=== PATIENT | female | born 1970 | race Two or more races ===

== ENCOUNTER → 2024-04-12 | Outpatient (CLI) | payer MEDICAID, SELFPAY ==
--- NOTE | 2024-04-12 10:00 | XR_ITS ---
Examination: Screening digital mammography, bilateral Computer aided detection 3-D breast Tomosynthesis, bilateral Date and time of exam: April 12, 2024 0943 hours Compared to mammograms dating to November 03, 2019 Indication: Screening Technique: Nonmagnified MLO, CC views of the breasts to been obtained, reconstructed from 3-D Tomosynthesis images. R2 computer aided detection program utilized for evaluation of suspicious masses and/or abnormal calcifications. 3-D Tomosynthesis images obtained. Findings: Scattered areas of fibroglandular density Benign calcifications No interval suspicious masses Impression: BI-RADS category II: Benign Findings. Recommend 1 year follow-up mammogram.
== END | disposition home or self-care (01) ==
PROVIDERS: PCP Physician Assistant; Referring Provider Physician Assistant; Visit Provider Physician Assistant
DX: Z12.31 Encounter for screening mammogram for malignant neoplasm of breast (principal); R92.323 Mammographic fibroglandular density, bilateral breasts; R92.1 Mammographic calcification found on diagnostic imaging of breast
CPT/HCPCS: 77063; 77067

== ENCOUNTER 2024-07-04 13:30 | Outpatient (RCR) | payer MEDICAID, SELFPAY ==
--- NOTE | 2024-06-22 15:08 | PTNOTE_ITS ---
PT OP Initial Eval Patient Information Outpatient Physical Therapy Treatment Date: 06/22/24 Visit Reasons: Left knee pain Medical Diagnosis: M25.462 Treatment Dx #1: L knee pain Start of Care: 06/22/24 Date of Onset: 6 months ago Smoking Status Smoking Status: Never smoker Initial Assessment Subjective: Pt is 54 yr old kazakh speaking female with c/o L knee pain and numbness and she point to the distal quads above the patella as site of pain. She does all ADL's and HH chores with ssx that don't vary or change, it's constant. She denies LBP and pain referring down the LE except when she lays prone and occasionally in sitting. PMH: pre-DM, high cholesterol Imaging: with provider Pt goal: to get rid of the numbness and swelling Objective: L knee AROM: Flexion: full extension: full SLR: 45 deg Sharyn's: negative Patella compression: negative Arthur's: negative Strength: Quads: 4/5 HS: 4/5 Trunk ROM screen: negative for referred pain into the L LE Assessment: Pt presents with numbness of distal lateral quads which could be consistent with lumbar radiculopathy but no increase in numbness was provoked with trunk ROM. It's not clear what is causing the numbness since the knee special testing was negative and knee strength is good. Pt may benefit from skilled therapy to meet goals and has fair rehab potential. She may benefit from further diagnostic imaging of the area and the L/S. Short Term and Business Taxes Specialist Goals 1. Ind with HEP 2. Decreased numbness of distal quads/ITB by 50% Treatment Plan 1. Manual therapy ? 2. Therex? 3. Modalities as indicated, moist heat, ice, estim Frequency and Duration: 1x a week for 4 visits Certification Dates: 06/22/24 to 09/19/24 Procedure Charges OP PT Eval Mod Complex 30 minutes: Yes
--- NOTE | 2024-07-04 14:41 | PT.ODAYNRPT ---
PT Outpatient Daily Note OP Daily Note Outpatient Physical Therapy Treatment Date: 07/04/24 Visit Reasons: Left knee pain Subjective: Same as evaluation Objective: See F/S for therex Assessment: Interesting presentation with numbness no pain of distal lateral quads, no pain provoked with therex Plan: Continue per POC Length of Time (minutes) of Treatment: 30 Minutes Procedure Charges Therapeutic Exercise 30 minutes: Yes
== END 2024-07-08 23:59 | disposition home or self-care (01) ==
LOC: CPTX 13:30
PROVIDERS: PCP Physician Assistant; Referring Provider Physician Assistant; Visit Provider Physician Assistant
DX: M25.562 Pain in left knee (principal); R20.0 Anesthesia of skin; M25.462 Effusion, left knee
CPT/HCPCS: 97110; 97162

== ENCOUNTER 2024-08-02 11:30 | Outpatient (RCR) | payer MEDICAID, SELFPAY ==
--- NOTE | 2024-07-19 12:29 | PT.ODAYNRPT ---
PT Outpatient Daily Note OP Daily Note Outpatient Physical Therapy Treatment Date: 07/19/24 Visit Reasons: Foot pain Subjective: Same as last time Objective: See F/S for therex MT: STM distal L ItB x5' Assessment: Pt presentation consistent with ItB tendinopathy with numbness and pain with pressure of distal ITB which is a new discovery today. Previously pt had denied pain of distal ITB. Plan: Continue per POC to treat L ItB Length of Time (minutes) of Treatment: 30 Minutes Procedure Charges Therapeutic Exercise 30 minutes: Yes
--- NOTE | 2024-07-27 10:59 | PT.ODAYNRPT ---
PT Outpatient Daily Note OP Daily Note Outpatient Physical Therapy Treatment Date: 07/27/24 Visit Reasons: Foot pain Subjective: Pt c/o soreness in L ITB after last visit Objective: See F/S for therex MT: STM distal L ItB x5' Assessment: Pt presentation consistent with ItB tendinopathy with numbness and pain with pressure of distal ITB which is a new discovery last visit. Previously pt had denied pain of distal ITB. Plan: Continue per POC to treat L ItB Length of Time (minutes) of Treatment: 30 Minutes Procedure Charges Therapeutic Exercise 30 minutes: Yes
--- NOTE | 2024-08-02 13:58 | PT.ODS1RPT ---
PT OP Progress/Discharge Note Date of Service: 08/02/24 Progress Note/DC Note Progress Note/Discharge Note: DC Note Patient Information Visit Reasons: Foot pain Service Continue Service or Discharge: Discharge Discharge Date: 08/02/24 Status Subjective: Pt c/o soreness in L ITB after last visit and the knee is still numb. Objective: See F/S for therex MT: STM distal L ItB x5' L knee ArOM: full flexion and extension. Strength: Quads: 4/5 HS: 4/5 TTP: moderate of mid to distal ITB Assessment: Pt has attended 4/4 authorized therapy visits with limited progress with therapy goals. Pt presentation consistent with ItB tendinopathy with numbness and pain with pressure of distal ITB which is a new discovery last visit. Previously pt had denied pain of distal ITB. She would benefit from further diagnostic imaging of L knee such as MRI. She hasn't met goal of decreased numbness of distal quads/ITB by 50%. She is independent with HEP to meet that goal. Plan: D/C with HEP. Procedure Charges Therapeutic Exercise 30 minutes: Yes
== END 2024-08-08 23:59 | disposition home or self-care (01) ==
LOC: CPTX 11:30
PROVIDERS: PCP Physician Assistant; Referring Provider Physician Assistant; Visit Provider Physician Assistant
DX: M25.562 Pain in left knee (principal); M25.462 Effusion, left knee; R20.0 Anesthesia of skin
CPT/HCPCS: 97110

== ENCOUNTER → 2024-11-07 | Outpatient (CLI) | payer MEDICAID, SELFPAY ==
--- NOTE | 2024-11-07 15:15 | XR_ITS ---
Exam: MRI knee without contrast, left Date and time of exam: November 07, 2024 1709 hours INDICATIONS: Left knee pain and swelling instability weakness months Technique: Multiple axial, coronal, and sagittal sections on the knee have been obtained. T2-Weighted sagittal, fat-suppressed images, TR 3,500, TE 62, T2 weighted coronal fat-saturated images, TR 3,500, TE 62 Proton density sagittal sections, TR 1800, TE 31. T-1 weighted coronal images, TR 524, TE 13.0 Findings: Medial meniscus anterior horn intact. Medial meniscus, body intact. Posterior horn medial meniscus intact. Lateral meniscus anterior horn is intact Lateral meniscus, body is intact Posterior horn lateral meniscus is intact Anterior cruciate ligament is mildly attenuated Posterior cruciate ligament appears intact. Knee effusion is small. Quadriceps and patellar tendons appear intact. There is no evidence of tendinosis. Inflammatory change or fracture of Hoffa's fat pad is not seen. Medial patellar facet demonstrates mild thinning. Lateral patellar facet cartilage demonstrates mild thinning. Trochlear cartilage demonstrates mild thinning. Marrow signal adequate. Medial collateral ligament appears intact. No meniscocapsular separation is seen. Illiotibial band and fibular collateral ligament are intact. Biceps femoris tendons appear intact. Medial femoral condylar articular cartilage demonstrates mild thinning. Lateral femoral condylar articular cartilage demonstratesmild thinning. Tibial plateau cartilage demonstrates mild thinning. Impression: Mild attenuation anterior cruciate ligament
== END | disposition home or self-care (01) ==
LOC: SMRI 14:16
PROVIDERS: PCP Physician Assistant; Referring Provider Physician Assistant; Visit Provider Physician Assistant
DX: M23.8X2 Other internal derangements of left knee (principal)
CPT/HCPCS: 73721

== ENCOUNTER 2025-02-21 19:04 | Emergency (ER) | payer MEDICAID, SELFPAY ==
[2025-02-21 19:07] VITALS: BMI 32.8
[2025-02-21 20:19] VITALS: BP 138/86; PULSE 86; RESP 18; TEMP 36.9; O2SAT 98
--- NOTE | 2025-02-21 20:22 | XR_ITS ---
Examination: Duplex scan of the lower extremity, unilateral left Date and time of exam: February 21, 2025, 2027 hours INDICATIONS: Onset left-sided leg pain beginning today Technique: Duplex scan of the extremity veins using B-mode/grayscale imaging and Doppler spectral analysis and color flow Attention is directed to internal echogenicity, compression and augmentation involving these veins, color flow assessment, spectral analysis Findings: Major deep venous structures in the extremity demonstrate normal course and caliber. There is no evidence of deep vein thrombosis. Normal color flow and spectral analysis Impression: Negative for DVT..
--- NOTE | 2025-02-21 20:24 | PD.EDEXREM ---
ED Extremity Problem RME/HPI General Chief complaint: Extremity Injury, Lower Stated complaint: L foot and lower leg pain Time Seen by Provider: 02/21/25 20:23 Arrival date/time: 02/21/25 19:04 55F with history of HTN presents to ED with several days of LLE pain w/o fall/trauma. This has happened before, but this time, meds aren't helping. Limitations: no limitations Related Data Home Medications ?Medication ?Instructions ?Recorded ?Confirmed lisinopril 20 mg tablet 20 mg PO QDAY 04/11/21 04/11/21 acetaminophen 325 mg tablet 650 mg PO Q8H PRN Pain 04/16/23 04/16/23 (Tylenol) nitrofurantoin 100 mg PO Q12H 04/16/23 04/16/23 monohydrate/macrocrystals 100 mg capsule phenazopyridine 200 mg tablet 200 mg PO TID PRN Pain 04/16/23 04/16/23 Previous Rx's ?Medication ?Instructions ?Recorded ondansetron 4 mg disintegrating 4 mg PO Q8H PRN nausea and 04/16/23 tablet vomiting #10 tabs Allergies Allergy/AdvReac Type Severity Reaction Status Date / Time naproxen Allergy Unknown Verified 02/21/25 19:15 Review of Systems Review of Systems Systems Reviewed: All systems reviewed, normal except as documented Musculoskeletal Musculoskeletal: Reports as per HPI and Reports radiating pain into limb Past Medical History Past Medical History CARDIAC: Negative Congestive Heart Failure RESPIRATORY: Negative Chronic Obstructive Pulmonary Disease (COPD) GENITOURINARY: Negative Renal Disease ENDOCRINE: Negative Diabetes Mellitus Type 1 or Diabetes Mellitus Type 2 Social History SMOKING STATUS: Never smoker ED Exam General Limitations: Present no limitations General appearance: Present alert and in no apparent distress Head Head exam: Present atraumatic Neck Neck exam: Present normal inspection, full ROM and trachea midline Chest Chest inspection: Present normal inspection and symmetric chest wall rise Extremities Exam Extremities exam: Present normal inspection and full ROM Neurological Exam Neurological exam: Present alert and oriented X3 Psychiatric Psychiatric exam: Present normal affect and normal mood Skin Skin exam: Present warm, dry, intact and normal color Course Quality Measures none Orders Category Date Time Status US venous doppler LE LT Stat Exams 02/21/25 20:22 Completed Baclofen [Lioresal] Med 02/21/25 20:22 Discontinued 10 mg PO X1 ONE HYDROcodone*/APAP 5/325 [[place] 5/325] Med 02/21/25 20:22 Discontinued 1 tab PO X1 ONE Vital Signs Vital signs: Vital Signs Temperature 98.4 F 02/21/25 20:19 Pulse Rate 86 02/21/25 20:19 Respiratory Rate 18 02/21/25 20:19 Blood Pressure 138/86 H 02/21/25 20:19 Pulse Oximetry (%) 98 02/21/25 20:19 Oxygen Delivery Method Room Air 02/21/25 20:19 O2 at 98% on RA and WNLs Extremity Problem MDM Narrative MDM Narrative:: 55F with history of HTN presents to ED with several days of LLE pain w/o fall/trauma. This has happened before, but this time, meds aren't helping. Physical exam reveals unremarkable LLE exam including no swelling or redness. Skin is warm. Patient is afebrile, alert, but appears uncomfortable. US no DVT. Meds and student financial services counselor given. Patient data External records reviewed:: [facility] previous records Clinical information provided by:: patient Social determinants that could affect healthcare access:: none Patient has the following chronic illnesses:: HTN How is presenting disease/condition affected by chronic disease/condition?: uneffected by Evaluation data The following diagnostics were reviewed and interpreted by me:: radiology exam(s) Lab and/or radiology exams considered but not ordered:: ordered Interpretation Summary: above Medications / Prescriptions Medications or Prescriptions considered but not ordered:: ordered Medication administrations:: Medication Administration History Discontinued Medications Hydrocodone Bitart/Acetaminophen (Hydrocodone/Apap 5/325 Tablet) 1 tab PO X1 ONE Stop: 02/21/25 20:23 Last Admin: 02/21/25 21:14 Dose: 1 tab Documented By: MICHAEL Baclofen (Baclofen 10 Mg Tablet) 10 mg PO X1 ONE Stop: 02/21/25 20:23 Last Admin: 02/21/25 21:13 Dose: 10 mg Documented By: MICHAEL above Consultations Consultation(s) initiated? (list below): No Diagnosis Extremity Problem Differential Diagnosis: herpes zoster, gout, cellulitis, superficial thrombophlebitis, deep venous thrombosis of upper extremity, lower extremity edema, deep vein thrombosis of lower extremity and other (sciatica) Most likely diagnosis given after review of the tests above:: sciatica Admission Indicated Admission indicated?: not indicated Admission Request Was there a request for admission?: No Disposition Plan Disposition Plan: Discharge Discharge Attestation Discharge Attestation: The patient and all family members were given an opportunity to ask questions and understood the discharge instructions. Discharge instructions specifically effects, indications for sooner follow up or return to the emergency department, and the expected course of current diagnosis. Patient condition: Stable Discharge Plan Plan Patient Disposition: HOME (Self Care) Discharge Disposition comment: Stable Prescriptions/Referrals Prescriptions/Med Rec: No Action lisinopril 20 mg tablet 20 mg PO QDAY phenazopyridine 200 mg Tablet 200 mg PO TID PRN (Reason: Pain) nitrofurantoin monohyd/m-cryst 100 mg Capsule 100 mg PO Q12H Rx Instructions: must administer with a meal/food acetaminophen [Tylenol] 325 mg Tablet 650 mg PO Q8H PRN (Reason: Pain) ondansetron 4 mg tablet,disintegrating 4 mg PO Q8H PRN (Reason: nausea and vomiting) Qty: 10 0RF Referrals: Rui Duque MD [Primary Care Provider, Family Practice] - In 1 week Problem List Clinical Impression: Sciatica Patient/Caregiver Discharge Instructions Education Materials: ED Sciatica Additional Instructions: Please follow-up with PCP within 24-48 hours and return immediately if symptoms worsen. If problem persists, recommend outpatient PT and/or MRI follow-up. In the meantime, rest, use ice/heat, and/or compression. Print Language: Cambodian Stand Alone Forms: Patient Portal Info Letter ALEAH/JIM Supervising Physician ALEAH/JIM Supervising Physician: Dr. Linda
[2025-02-21] MEDS: BACLOFEN 10 MG TABLET PO (21:13)
[2025-02-21] MEDS: HYDROcodone/APAP 5/325 TABLET 1 TAB PO (21:14)
== END 2025-02-21 21:36 | disposition home or self-care (01) ==
PROVIDERS: Emergency Provider Emergency Medicine; PCP Family Medicine
DX: M54.30 Sciatica, unspecified side (principal); I10 Essential (primary) hypertension
CPT/HCPCS: 93971; 99283; A9270